=== PATIENT | male | born 1950 | race Caucasian/White ===

== ENCOUNTER 2018-05-12 16:11 | Outpatient (CLI) | payer MEDICARE ==
--- NOTE | 2018-05-15 09:45 | RAD ---
CERVICAL SPINE 3 VIEWS: Date: 05/12/18 HISTORY: Worsening neck pain. FINDINGS: Lateral flexion and extension views are included with a lateral neural view. Vertebral body heights a re maintained. Disc space narrowing is most pronounced at the C3-4 and C5-6 levels. Moderate osteophy tosis throughout the vertebral bodies and facets. Minimal spondylolisthesis at the C2-3 level does not change significantly upon flexion or extension. IMPRESSION: Mild to moderate degenerative changes throughout the cervical spine. No acute osseous abnormalities a re demonstrated. POS: [facility]
== END 2018-05-12 16:12 | disposition home or self-care (01) ==
LOC: TBSIIMAG 16:11
PROVIDERS: ATTEND Neurological Surgery
DX: M47.22 Other spondylosis with radiculopathy, cervical region (principal)
CPT/HCPCS: 72040

== ENCOUNTER 2018-10-05 14:04 | Outpatient (CLI) | payer MEDICARE ==
--- NOTE | 2018-10-05 15:47 | RAD ---
KUB: 10/05/18 HISTORY: Renal calculi. Large amount of stool considerably obscures detail over both the right and left kidneys. There are ra diopaque densities overlying the lower pole left kidney presumably renal calculi and a possible calcu jesse in the right kidney although this could just be overlying stool. I do not see a definite ureteral calculus. IMPRESSION: Probable bilateral renal calculi. POS: [facility]
== END 2018-10-05 14:05 | disposition home or self-care (01) ==
LOC: RAD 14:04
PROVIDERS: ATTEND Urology
DX: N20.0 Calculus of kidney (principal)
CPT/HCPCS: 74018; 81001

== ENCOUNTER 2018-11-27 15:39 | Outpatient (CLI) | payer MEDICARE ==
--- NOTE | 2018-11-27 18:01 | RAD ---
RADIOGRAPH ABDOMEN 1 VIEW: Date: 11/27/18 Time: 1556 hours HISTORY: 68-year-old male with calculus of kidney. COMPARISON: 10/05/18. FINDINGS: There is a new IVC filter. The previously demonstrated small calcification overlying the left renal m id pole shadow remains. Moderate volume of colonic stool. Nonobstructive bowel gas pattern. The very small calcification overlying the contralateral right renal mid-upper pole shadow also remains. IMPRESSION: 1. New inferior vena cava filter. 2. No other interval change. 3. Mild bilateral nephrolithiasis. POS: [facility]
== END 2018-11-27 15:40 | disposition home or self-care (01) ==
LOC: RAD 15:39
PROVIDERS: ATTEND Urology
DX: N20.0 Calculus of kidney (principal); Z95.828 Presence of other vascular implants and grafts
CPT/HCPCS: 74018

== ENCOUNTER 2018-12-26 10:26 | Outpatient (CLI) | payer MEDICARE ==
[~2018-12-26 10:26] MED LIST: ISOVUE-370 76%-LOCM 1 ML ONE
--- NOTE | 2018-12-26 13:57 | CT ---
CT ABDOMEN AND PELVIS WITH AND WITHOUT CONTRAST: History: R31.9 hematuria, unspecified; urogram. Comparison: 11-01-17 FINDINGS: Mild scarring in the lung bases. No pericardial effusion. On the noncontrast portion of the examination there is a calculus of the right renal pelvis measuring 7 mm in transverse x 9 mm in craniocaudal dimension as well as 3 x 5 mm calculus in the extrarenal i nferior collecting system. Punctate 2 mm calculus times 2 in the within the left superior renal colle cting system. IVC filter is in place. No hydronephrosis. No calculi within the ureters nor the urinary bladder. The re is mild prominence of the right ureter. Scarring superior pole right kidney. Similar appearance of the hypodensities superior pole left kidne y without significant internal enhancement. No solid enhancing renal mass. Urinary bladder wall is th ickened circumferentially without an enhancing mass. Likely TURP changes. Advanced degenerative disease pubic symphysis. No suspicious osteolytic or osteoblastic lesions. No d ilated loops of large or small bowel. No retroperitoneal adenopathy. Aortic contour is non-aneurysmal . Liver, gallbladder, and spleen are unremarkable, as well as the pancreas. IMPRESSION: 1. No obstructed bilateral renal calculi. 2. 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 3. Unchanged cyst of the interpolar left kidney as well as scarring in superior pole right kidney. 4. The dominant calculus and right renal pelvis is slightly increased in size from the comparison exa mination. 5. 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 POS: [facility]
== END 2018-12-26 10:27 | disposition home or self-care (01) ==
LOC: BICCT 10:26
PROVIDERS: ATTEND Urology
DX: R31.9 Hematuria, unspecified (principal); N28.1 Cyst of kidney, acquired; N28.89 Other specified disorders of kidney and ureter; N20.0 Calculus of kidney; M43.16 Spondylolisthesis, lumbar region
CPT/HCPCS: 74178; 82565; Q9966